=== PATIENT | female | born 1995 | race Caucasian/White ===

== ENCOUNTER 2021-06-23 15:27 | Emergency (ER) | payer BC ==
--- NOTE | 2021-06-23 16:37 | EDM.PDOC ---
ED HPI GENERAL MEDICAL PROBLEM - General Stated Complaint: COVID SYMPTOMS Time Seen by Provider: 06/23/21 15:35 Source of Information: Reports: Patient - History of Present Illness INITIAL COMMENTS - FREE TEXT/NARRATIVE: 25-year-old lady came to the emergency department after being seen in the walk- in clinic and told that she had bronchitis because she would like a second opinion. She does have a history of having to be hospitalized with pneumonia approximately 1-1/2 to 2 years ago. She has also had bronchitis in the past. She has also had chronic problems with sinus infection. She does not know of any Covid positive contacts and she is fully vaccinated. She is an elementary math tutor. She complains of upper respiratory symptoms that started about 2 weeks ago. They initially improved and then 3 days ago got significantly worse. Her symptoms include headache, fever/chills, cough, rhinorrhea, chest pain, sore throat, arthralgias, myalgias. Has been taking [id number] cough and cold medicine which initially gave her some relief but have been ineffective over the last 3 days. She last took Tylenol, extra strength, this morning at approximately 9 AM because she felt fevers. She denies any change in bowel or bladder habits, chest pain. She does feel a little short of breath. - Related Data Allergies Allergy/AdvReac Type Severity Reaction Status Date / Time Sulfa (Sulfonamide Allergy Hives Verified 06/23/21 16:11 Antibiotics) Home Meds: Home Meds Amoxicillin/Potassium Clav [Augmentin 875-125 Tablet] 1 each PO BID #13 tablet 06/23/21 [Rx] ED ROS GENERAL - Review of Systems Review Of Systems: See Below Constitutional: Reports: Malaise HEENT: Reports: Nose Pain, Sinus Problem, Throat Pain Respiratory: Reports: Shortness of Breath, Pleuritic Chest Pain, Cough Cardiovascular: Reports: Chest Pain Endocrine: Reports: Fatigue GI/Abdominal: Reports: No Symptoms : Reports: No Symptoms Musculoskeletal: Reports: Joint Pain, Muscle Pain Skin: Reports: No Symptoms Neurological: Reports: No Symptoms Psychiatric: Reports: No Symptoms Hematologic/Lymphatic: Reports: No Symptoms Immunologic: Reports: No Symptoms ED EXAM, GENERAL - Physical Exam Exam: See Below Exam Limited By: No Limitations General Appearance: Alert, Mild Distress Eye Exam: Bilateral Eye: EOMI Nose: Nasal Tenderness, Nasal Flaring, Other (Erythema, edema, left sided hyperemia, tenderness to palpation over the maxillary and frontal sinuses, left greater than right) Head: Atraumatic, Normocephalic Neck: Normal Inspection. No: Lymphadenopathy (R), Lymphadenopathy (L) Respiratory/Chest: Other (Coarse breath sounds bilateral with no obvious wheezes or rhonchi) Cardiovascular: No Murmur, Tachycardia Peripheral Pulses: 2+: Radial (L), Radial (R), Dorsalis Pedis (L), Dorsalis Pedis (R) GI/Abdominal: Normal Bowel Sounds, Soft, Non-Tender Back Exam: Normal Inspection. No: CVA Tenderness (R), CVA Tenderness (L) Extremities: Normal Inspection, No Pedal Edema Neurological: Alert, Oriented, CN II-XII Intact, Normal Cognition Psychiatric: Normal Affect, Normal Mood Skin Exam: Warm, Dry, Intact Course - Vital Signs Text/Narrative:: Covid test is negative. View of chest x-ray shows possible mild coughing bilateral lower lobes no other obvious acute process and is otherwise within normal limits. - Orders/Labs/Meds Orders: Active Orders 24 hr Category Date Time Status CXR [Chest 2V] [CR] Stat Exams 06/23/21 17:04 Taken Labs: Laboratory Tests 06/23/21 Range/Units 16:00 SARS-CoV-2 RNA (YOLANDA) Negative (NEGATIVE) Meds: Medications Discontinued Medications Generic Name Dose Route Start Last Admin Trade Name Freq PRN Reason Stop Dose Admin Amoxicillin/Clavulanate Potassium 1 tab 06/23/21 17:18 Amoxicillin/Clavulanate K 875-125 Mg Tab PO 06/23/21 17:19 ONETIME ONE Departure - Departure Time of Disposition: 17:22 Disposition: Home, Self-Care 01 Clinical Impression: Acute bacterial sinusitis, Bronchitis - Discharge Information *PRESCRIPTION DRUG MONITORING PROGRAM REVIEWED*: Not Applicable *COPY OF PRESCRIPTION DRUG MONITORING REPORT IN PATIENT DAVE: Not Applicable Prescriptions: Amoxicillin/Potassium Clav [Augmentin 875-125 Tablet] 1 each PO BID #13 tablet Instructions: Upper Respiratory Infection, Adult, Rall-[id number], Acute Bronchitis, Adult, [id number], Sinusitis, Adult Additional Instructions: Patient instructed to continue to use [id number] cough and cold remedies, antihistamines, decongestants, and to take antibiotic as directed until completed. Patient instructed to follow-up with her primary care physician. - My Orders Last 24 Hours: My Active Orders 06/23/21 17:04 CXR [Chest 2V] [CR] Stat - Assessment/Plan Last 24 Hours: My Active Orders 06/23/21 17:04 CXR [Chest 2V] [CR] Stat
[2021-06-23] MEDS ORDERED: Amoxicillin/Clavulanate K 875-125 MG Tab PO ONE (17:18)
--- NOTE | 2021-06-25 13:00 | CR ---
INDICATION: Cough, shortness of breath for three days. CHEST, TWO VIEWS: PA and lateral views of the chest 06/23/21 - no comparisons. The heart and mediastinum are unremarkable. A mild dextroconvex scoliosis of the mid to lower thoracic spine is noted. Bronchial wall cuffing is noted in the upper through lower lung tejada, suggesting active peribronchial disease, either infectious or inflammatory, edema less likely. IMPRESSION: No consolidating pneumonia or effusion was seen. There appears to be a degree of bronchiectasis, especially in the lung bases. Report was called to Leidy Lamb at 1050 hours, 06/25/21. MTDD
== END 2021-06-23 18:00 | disposition home or self-care (01) ==
LOC: FB.ED 15:27
DX: J01.90 Acute sinusitis, unspecified (principal); B96.89 Other specified bacterial agents as the cause of diseases classified elsewhere; J40 Bronchitis, not specified as acute or chronic; Z20.822 Contact with and (suspected) exposure to COVID-19; Z88.2 Allergy status to sulfonamides
CPT/HCPCS: 71046; 87635; 99284; A9270; U0002

== ENCOUNTER 2022-07-06 19:58 | Emergency (ER) | payer BC | END 2022-07-06 20:45 | disposition home or self-care (01) | LOC: FB.ED 19:58 | DX: U07.1 COVID-19 (principal) | CPT/HCPCS: 99281 ==